=== PATIENT | male | born 1940 | race Two or more races ===

== ENCOUNTER → 2017-01-28 | Outpatient (CLI) | payer MEDICARE, BC ==
--- NOTE | 2017-01-28 16:58 | RADRPT ---
PROCEDURE: XR Right hip and pelvis. CLINICAL INDICATION: Right hip pain. Pelvic pain. TECHNIQUE: Two views. Frontal pelvis and lateral right hip. COMPARISON: No prior studies are available for comparison. FINDINGS: There is no fracture or dislocation. The soft tissues are normal. There are degenerative changes of both hips with joint space narrowing and osteophytes. Right is wo rse than left. There is no lytic or blastic lesion. The upper pelvis is not completely included on the image. IMPRESSION: 1. Moderate degenerative changes of both hips with right worse than left. RPTAT: QQ .Huber Aden MD, MD Date Time Electronically viewed and signed by .Huber Aden MD, MD on 01/28/2017 16:58 .R/
--- NOTE | 2017-02-13 08:34 | HKNOTE ---
DATE OF SERVICE: 01/28/2017 MAIN COMPLAINT: Pain in the right hip. HISTORY OF MAIN COMPLAINT: The patient is a 76-year-old male who complains of pain in the right hip, which has been present for about 4 months. The patient has had 2 strokes. The 1st was in June 2016. He was seen at [facility] and made a rapid recovery after being given a " buster." The 2nd occurred at home, and he was seen at [facility] 1 and a half days after the stroke. This was, therefore, untreatable, but he has made a reasonably good recovery from that now and is almost "back to normal." His main complaint at this time is pain in the right hip. Pain is described as being moderate and has been present for about 4 months. There is no history of injury. His pain is not aggravated by walking, weightbearing, or stair climbing. He does not get any rest pain. Sometimes he has woken up. He does limp all the time. He does not have a shoe lift. He cannot clip his toenails or tie his shoe laces. PAST ORTHOPEDIC HISTORY, PREVIOUS ORTHOPEDIC OPERATIONS: Arthroscopic meniscectomy 8 years ago. Prior cortisone intake: One cortisone injection 6 years ago. Alcohol intake: None. Other joint problems: None. Blood tests for arthritis: None. Prior injuries: None. WORK STATUS: Patient is retired. PAST MEDICAL HISTORY: 1. Hypertension. 2. Two previous strokes. PAST SURGICAL HISTORY: Open heart surgery (? stent). ALLERGIES: DRUG ALLERGIES: NONE. MEDICATIONS: 1. Eliquis. 2. Metoprolol. 3. Atorvastatin. 4. Amlodipine. 5. Furosemide. FAMILY HISTORY: Noncontributory. SYSTEMS REVIEW: Excess night urination, hypertension. Otherwise negative. HABITS: The patient quit smoking 35 . PHYSICAL EXAMINATION: The patient is a fragile-looking, 76-year- old male. VITAL SIGNS: He left before his vital signs were taken. RIGHT HIP: Full range of motion with mild pain at the limits of motion. Tenderness over the greater trochanter. IMAGING: Plain x-rays of his pelvis and hips show mild degenerative changes in the right hip. DIAGNOSES: 1. 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 2. Trochanteric bursitis of the right hip. 3. Recent history of recent strokes. MANAGEMENT: Under sterile conditions, he was given 2 mL of Kenalog and 6 mL of 2 percent lidocaine divided between the trochanteric bursa and the hip joint. He will be seen again as necessary. Dictated By: Bruce Valladares MD /bayron/maria luisa /Document#: [id number]
== END | disposition home or self-care (01) ==
LOC: HKI 15:24
DX: M17.11 Unilateral primary osteoarthritis, right knee (principal); M70.61 Trochanteric bursitis, right hip; I10 Essential (primary) hypertension; Z86.73 Personal history of transient ischemic attack (TIA), and cerebral infarction without residual deficits; Z98.61 Coronary angioplasty status; Z87.891 Personal history of nicotine dependence
CPT/HCPCS: 20610; 73502; G0463